=== PATIENT | male | born 1955 | race Caucasian/White ===

== ENCOUNTER 2016-11-23 13:41 | Emergency (ER) | payer MEDICAID ==
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
[2016-11-23 13:55] VITALS: BP 146/90
[2016-11-23] MEDS ORDERED: Ketorolac 60 MG/2 ML SDV IM ONE (14:20)
== END 2016-11-23 14:50 | disposition home or self-care (01) ==
LOC: LL.ED 13:41
DX: I71.9 Aortic aneurysm of unspecified site, without rupture (principal); E78.00 Pure hypercholesterolemia, unspecified; I10 Essential (primary) hypertension; J44.9 Chronic obstructive pulmonary disease, unspecified; K21.9 Gastro-esophageal reflux disease without esophagitis; D64.9 Anemia, unspecified; F17.210 Nicotine dependence, cigarettes, uncomplicated; E78.5 Hyperlipidemia, unspecified; M19.90 Unspecified osteoarthritis, unspecified site; Z79.899 Other long term (current) drug therapy; Z72.0 Tobacco use
CPT/HCPCS: 71101; 96372; 99282; J1885

== ENCOUNTER 2020-06-19 12:46 | Inpatient (IN) | payer MEDICAID ==
[2020-06-19] MEDS ORDERED: Famotidine 20 MG/2 ML SDV IVPUSH ONE (12:51)
[2020-06-19] MEDS ORDERED: Sodium Chloride 0.9% 10 ML Syringe FLUSH PRN ×2 (12:51→16:09)
--- NOTE | 2020-06-19 12:51 | EDM.PDOC ---
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 factors. Qualifiers: Coronary Disease-Associated Artery/Lesion type: elem artery [place] vs. transplanted heart: elem heart Associated angina: without angina Qualified Code(s): I25.10 - Atherosclerotic heart disease of elem coronary artery without angina pectoris (10) Acute renal insufficiency SNOMED Code(s): 298198904 Code(s): N28.9 - DISORDER OF KIDNEY AND URETER, UNSPECIFIED Status: Acute Priority: High Current Visit: No Onset Date: 06/19/20 Annotation/Comment:: As above. Likely secondary to dehydration. Continue aggressive IV fluids as above. (11) Hyponatremia SNOMED Code(s): 92854988 Code(s): E87.1 - HYPO-OSMOLALITY AND HYPONATREMIA Status: Acute Priority: High Current Visit: No Onset Date: 06/19/20 Annotation/Comment:: As above (12) Hypothyroidism (acquired) SNOMED Code(s): 165635324 Code(s): E03.9 - HYPOTHYROIDISM, UNSPECIFIED Status: Acute Priority: Medium Current Visit: No Onset Date: 06/19/20 Annotation/Comment:: Newly diagnosed. Initiate low-dose Synthroid therapy. (13) Diarrhea SNOMED Code(s): 64956500 Code(s): R19.7 - DIARRHEA, UNSPECIFIED Status: Chronic Priority: High Current Visit: Yes Annotation/Comment:: Note recent EGD and colonoscopy in April 2020 as above. Stool specimens to be collected as above. In addition, note unintentional weight loss secondary to this diarrhea in the last several weeks. Qualifiers: Diarrhea type: unspecified type Qualified Code(s): R19.7 - Diarrhea, unsp ecified (14) Mixed anxiety depressive disorder SNOMED Code(s): 027344480 Code(s): F41.8 - OTHER SPECIFIED ANXIETY DISORDERS Status: Chronic Priority: Medium Current Visit: Yes Annotation/Comment:: Stable by history. No history of consistent alcohol abuse. DT precautions to be initiated. - Problem List Review Problem List Initiated/Reviewed/Updated: Yes - My Orders Last 24 Hours: My Active Orders 06/19/20 Breakfast Nothing per Oral Now Diet [DIET] 06/19/20 12:51 Cardiac Monitoring [RC] . DIRECTED EKG Documentation Completion [RC] ASDIRECTED Oxygen Therapy, ED [RC] CONTINUOUS Peripheral IV Care [RC] . DIRECTED Pulse Oximetry [RC] CONTINUOUS Up With Assistance [RC] PFP Vital Signs [RC] PFP Chest 1V Frontal [CR] Stat Sodium Chloride 0.9% [Saline Flush] 10 ml FLUSH ASDIRECTED PRN Obtain Past Medical Record [OM.PC] Urgent Peripheral IV Insertion Adult [OM.PC] Stat Resuscitation Status Stat - Assessment/Plan Admission H&P: Please use this note as an admission H&P Last 24 Hours: My Active Orders 06/19/20 Breakfast Nothing per Oral Now Diet [DIET] 06/19/20 12:51 Cardiac Monitoring [RC] . DIRECTED EKG Documentation Completion [RC] ASDIRECTED Oxygen Therapy, ED [RC] CONTINUOUS Peripheral IV Care [RC] . DIRECTED Pulse Oximetry [RC] CONTINUOUS Up With Assistance [RC] PFP Vital Signs [RC] PFP Chest 1V Frontal [CR] Stat Sodium Chloride 0.9% [Saline Flush] 10 ml FLUSH ASDIRECTED PRN Obtain Past Medical Record [OM.PC] Urgent Peripheral IV Insertion Adult [OM.PC] Stat Resuscitation Status Stat Assessment:: As above Plan: As above. Extensive precautions were given to the patient, who is in agreement with the treatment plan. The patient will require about 3-4 days of inpatient/acute care secondary to multiple health problems as above.
[2020-06-19] MEDS ORDERED: Lactated Ringers 1,000 ML IV ONE (12:53)
[2020-06-19 13:22] LABS: PTT,PARTIAL THROMBOPLSTIN TIME 39.8 SEC (24.5-32.8)
[2020-06-19] MEDS ORDERED: Sodium Chloride 0.9% 1,000 ML IV ONE (13:22)
[2020-06-19] MEDS ORDERED: Acetaminophen 325 MG Tab PO PRN (16:09)
[2020-06-19] MEDS ORDERED: Temazepam 15 MG Cap PO PRN (16:09)
[2020-06-19] MEDS: Sodium Chloride 0.9% 1,000 ML IV SCH (17:13)
[2020-06-19] MEDS ORDERED: Pantoprazole 40 MG Vial IVPUSH SCH (18:00)
[2020-06-19] MEDS: Enoxaparin 80 MG/0.8 ML Syringe SUBCUT SCH (18:02)
[2020-06-19] MEDS ORDERED: Gabapentin 300 MG Cap PO SCH (20:00)
[2020-06-20] MEDS: Sodium Chloride 0.9% 1,000 ML IV SCH ×2 (01:41→09:47)
[2020-06-20] MEDS ORDERED: Nicotine 21 MG/24 Hr Patch TRDERM SCH (08:00)
[2020-06-20] MEDS ORDERED: Pantoprazole 40 MG Vial IVPUSH SCH (08:00)
[2020-06-20] MEDS ORDERED: Rosuvastatin 10 MG Tab PO SCH (08:00)
[2020-06-20] MEDS ORDERED: Fenofibrate,Micronized 134 MG Cap PO SCH (08:00)
[2020-06-20 08:30] LABS: HEMOGLOBIN A1C 5.6 % (4.3-5.7)
[2020-06-20 08:48] LABS: CHLORIDE,CL 104 mmol/L (98-107); SODIUM,NA 133 mmol/L (136-145)
[2020-06-20 16:19] VITALS: BP 100/58; PULSE 78
--- NOTE | 2020-06-20 16:21 | PCM.DCSUM1 ---
Discharge Summary - Hospital Course Brief History: Patient admitted for dehydration secondary to prolonged history of loose stools. Diagnosis: Stroke: No - Discharge Data Discharge Date: 06/20/20 Discharge Disposition: Home, Self-Care 01 Condition: Good - Referral to Home Health Primary Care Physician: PCP Unknown - Discharge Diagnosis/Problem(s) (1) Diarrhea SNOMED Code(s): 82946589 ICD Code: R19.7 - DIARRHEA, UNSPECIFIED Status: Chronic Priority: High Current Visit: Yes Problem Details: Patient reports significant improvement of loose stools since admission/IV fluids. Note recent EGD and colonoscopy in April 2020 as above. Stool specimens requested at time of admission. In addition, note unintentional weight loss secondary to this diarrhea in the last several weeks. Patient does not want to remain in hospital and wishes to be discharged today. Says he will continue follow up with his primary providers/GI for ongoing workup. Qualifiers: Diarrhea type: unspecified type Qualified Code(s): R19.7 - Diarrhea, unspecified (2) Acute renal insufficiency SNOMED Code(s): 422765360 ICD Code: N28.9 - DISORDER OF KIDNEY AND URETER, UNSPECIFIED Status: Acute Priority: High Current Visit: No Onset Date: 06/19/20 Problem Details: Likely secondary to dehydration. Improved today with Cr of 1.69 As noted above, patient does not wish to stay in the hospital and wishes to be discharged. Nursing noted that he has had good PO fluid intake today. Recommend follow up next week with primary to get BMP rechecked. (3) Hypothyroidism (acquired) SNOMED Code(s): 692060754 ICD Code: E03.9 - HYPOTHYROIDISM, UNSPECIFIED Status: Acute Priority: Medium Current Visit: No Onset Date: 06/19/20 Problem Details: Newly diagnosed. Follow up with PCP for initiation of Thyroid medication, ongoing monitoring and adjustments. (4) Mixed anxiety depressive disorder SNOMED Code(s): 020345395 ICD Code: F41.8 - OTHER SPECIFIED ANXIETY DISORDERS Status: Chronic Priority: Medium Current Visit: Yes Problem Details: Stable by history. No history of consistent alcohol abuse. No DTs observed by nursing staff. (5) Aortic aneurysm SNOMED Code(s): 50208501 ICD Code: I71.9 - AORTIC ANEURYSM OF UNSPECIFIED SITE, WITHOUT RUPTURE Status: Acute Priority: High Current Visit: No Problem Details: Note previous history of abdominal aortic aneurysm, including stent placement, with apparent previous close followup by his regular physicians at the [facility] in [place], although the patient has apparently been noncompliant with these visit recently. Despite renal insufficiency today no direct evidence of recurrence of abdominal aortic aneurysm. (6) Coronary artery disease SNOMED Code(s): 33626562 ICD Code: I25.10 - ATHSCL HEART DISEASE OF [place] CORONARY ARTERY W/O ANG PCTRS Status: Acute Priority: High Current Visit: No Onset Date: 06/19/20 Problem Details: Evidence of anterior wall cardiac ischemia by today's EKG with no chest pain or anginal type symptoms. Chest pain protocol was not initiated secondary to absence of the symptoms. Troponins negative. Cardiolite stress test on an outpatient basis secondary to his multiple cardiac risk factors recommended. Qualifiers: Coronary Disease-Associated Artery/Lesion type: [place] artery [place] vs. transplanted heart: [place] heart Associated angina: without angina Qualified Code(s): I25.10 - Atherosclerotic heart disease of [place] coronary artery without angina pectoris (7) HTN, Benign hypertension SNOMED Code(s): 74953611 ICD Code: I10 - ESSENTIAL (PRIMARY) HYPERTENSION Status: Acute Priority: Medium Current Visit: No Onset Date: 08/14/14 Problem Details: Note history of hypertension with severe hypotension at time of presentation likely secondary to dehydration as above. BPs improved s/p IV fluids and are stable. (8) Hyponatremia SNOMED Code(s): 83157436 ICD Code: E87.1 - HYPO-OSMOLALITY AND HYPONATREMIA Status: Acute Priority: High Current Visit: No Onset Date: 06/19/20 Problem Details: Level improved to 133 today. (9) Hypotension SNOMED Code(s): 20495157 ICD Code: I95.9 - HYPOTENSION, UNSPECIFIED Status: Acute Priority: High Current Visit: No Onset Date: 06/19/20 Problem Details: Blood pressures improved after 1 L bolus of normal saline with symptoms likely secondary to dehydration from his chronic diarrhea as above/below. No vasopressors indicated. Note history of abdominal aortic aneurysm as above/below with no direct evidence of recurrence at this time despite renal insufficiency. Qualifiers: Hypotension type: other hypotension type Qualified Code(s): I95.89 - Other hypotension (10) COPD (chronic obstructive pulmonary disease) SNOMED Code(s): 48219738 ICD Code: J44.9 - CHRONIC OBSTRUCTIVE PULMONARY DISEASE, UNSPECIFIED Status: Chronic Priority: Medium Current Visit: No Problem Details: P ersistent tobacco abuse history with tobacco cessation once again strongly encouraged and cessation information to be provided once again at time of discharge. None strongly consider PFTs in this patient with initiation of Combivent inhaler during this hospitalization. No recent fever or bronchitic type symptoms. No indication for antibiotic therapy at this time. Qualifiers: COPD type: emphysema Emphysema type: panlobular Qualified Code(s): J43.1 - Panlobular emphysema (11) Hyperlipidemia SNOMED Code(s): 61933868 ICD Code: E78.5 - HYPERLIPIDEMIA, UNSPECIFIED Status: Chronic Priority: Medium Current Visit: No Problem Details: Currently under therapy Qualifiers: Hyperlipidemia type: unspecified Qualified Code(s): E78.5 - Hyperlipidemia, unspecified (12) Osteoarthritis SNOMED Code(s): 071506209 ICD Code: M19.90 - UNSPECIFIED OSTEOARTHRITIS, UNSPECIFIED SITE Status: Chronic Priority: Medium Current Visit: No Problem Details: Otherwise stable by patient history with no recent history of fall or injury. (13) Peptic reflux disease SNOMED Code(s): 893817912 ICD Code: K21.9 - GASTRO-ESOPHAGEAL REFLUX DISEASE WITHOUT ESOPHAGITIS Status: Chronic Priority: Medium Current Visit: No Problem Details: Note recent EGD and colonoscopy as above. High-dose IV Pepcid given in the emergency room with additional IV Protonix to be initiated after admission. No direct evidence of acute GI bleed despite his chronic diarrhea, which was present prior to his GI work-up in April. Stool specimens to be obtained for C. difficile, culture, ova, and parasites. (14) Tobacco abuse counseling SNOMED Code(s): 914005073, 600846939, 747728034 ICD Code: Z71.6 - TOBACCO ABUSE COUNSELING Status: Chronic Priority: Medium Current Visit: No Problem Details: Tobacco cessation once again strongly encouraged as above with tobacco cessation information to be provided at discharge. - Patient Summary/Data Hospital Course: Patient hydrated with IV fluids. BP improved. He reported feeling much better. Tolerating PO fluids well. Reports decreased loose stools. Renal function improved. DDimer elevated. No SOB/evidence of DVTs on exam. Unable to perform CT scan due to elevated renal function. US not available until Tuesday. Normal WBC/afebrile. Patient does not want to remain in hospital any longer w hen rounded upon and wishes to be discharged. Precautions reviewed with patient. Strongly encouraged to follow up at clinic next week for recheck of labs/kidney function. Will need to continue follow up with the chronic diarrhea, newly diagnosed hypothyroidism. To return to ER if he has sudden SOB/PE concerns. - Patient Instructions Diet: Usual Diet as Tolerated Activity: As Tolerated Showering/Bathing: May Shower Other/Special Instructions: Follow up at clinic NEXT WEEK so that they can check to see if your kidneys are better vs worse. You also need to discuss starting Thyroid medication as your Thyroid TSH is high and will need a better lab workup. Return to the ER if you have any shortness of breath. Recommend that you have an ultrasound of the lower legs next week to make certain there are no signs of any blood clots because one of your lab tests, called a RUBÉNimer, was high. Continue follow up with GI and your regular doc for the diarrhea. Stay hydrated. Follow up otherwise as needed in ER if you have worsening problems. - Discharge Plan *PRESCRIPTION DRUG MONITORING PROGRAM REVIEWED*: Not Applicable *COPY OF PRESCRIPTION DRUG MONITORING REPORT IN PATIENT MADELINE: Not Applicable Home Medications: Home Meds Losartan [Cozaar] 100 mg PO DAILY 08/14/14 [History] Omeprazole [Prilosec] 40 mg PO DAILY 08/14/14 [History] Metoprolol Tartrate 25 mg PO BID 08/19/14 [History] Cyclobenzaprine [Flexeril] 10 mg PO BEDTIME 04/23/20 [History] Fenofibrate Nanocrystallized [Tricor] 145 mg PO DAILY 04/23/20 [History] Rosuvastatin Calcium [Crestor] 40 mg PO DAILY 04/23/20 [History] Gabapentin [Neurontin] 300 mg PO BEDTIME 06/19/20 [History] Patient Handouts: Acute Kidney Injury, Adult, Hypothyroidism Forms: ED Department Discharge Referrals: PCP,Unknown [Primary Care Provider] - - Discharge Summary/Plan Comment DC Time >30 min.: Yes (waiting for ride) - General Info Date of Service: 06/20/20 Admission Dx/Problem (Free Text: Dehydration/hypotension/chronic diarrhea Subjective Update: Patient is without complaint. Says he feels fine and wants to go home. Is urinating. Decreased loose stools. Functional Status: Reports: Pain Controlled Numeric/FACES Score: 0 - Review of Systems General: Reports: No Symptoms HEENT: Denies: Headaches, Sinus Congestion, Sore Throat, Rhinitis, Visual Changes Pulmonary: Reports: Cough (chronic/unchanged). Denies: Shortness of Breath, Pleuritic Chest Pain, Sputum, Hemoptysis, Wheezing Cardiovascular: Denies: Chest Pain, Palpitations, Dyspnea on Exertion, Orthopnea, Lightheadedness Gastrointestinal: Reports: Diarrhea (chronic/improved). Denies: Abdominal Pain, Hematochezia, Melena, Nausea, Vomiting Genitourinary: Reports: No Symptoms Musculoskeletal: Reports: Other (no changes from baseline) Skin: Reports: No Symptoms Neurological: Reports: No Symptoms Psychiatric: Reports: No Symptoms - Patient Data Vitals - Most Recent: Last Vital Signs Temp 36.7 C 06/20/20 12:00 Pulse 68 06/20/20 12:00 Resp 18 06/20/20 12:00 BP 102/58 L 06/20/20 12:00 Pulse Ox 98 06/20/20 12:00 Weight - Most Recent: 71.169 kg I&O - Last 24 hours: Intake & Output 06/20/20 06/20/20 06/20/20 06:59 14:59 22:59 Intake Total 1150 1058 Output Total 400 Balance 750 1058 Lab Results - Last 24 hrs: Laboratory Results - last 24 hr 06/19/20 06/20/20 06/20/20 Range/Units 20:50 07:30 07:30 WBC 6.0 (4.0-10.2) K/uL RBC 4.28 L (4.33-5.41) M/uL Hgb 13.2 D (13.1-16.8) g/dL Hct 39.8 (39.0-49.0) % MCV 93.0 (84.0-98.0) fL MCH 30.8 (28.2-33.3) pg MCHC 33.2 (31.7-36.0) g/dL RDW 13.4 (11.2-14.1) % Plt Count 157 (150-350) K/uL Neut % (Auto) 45.5 (45.0-80.0) % Lymph % (Auto) 36.6 (10.0-50.0) % [place] % (Auto) 12.7 (2.0-14.0) % Eos % (Auto) 4.0 (0.0-5.0) % Baso % (Auto) 1.2 (0.0-2.0) % Neut # (Auto) 2.72 (1.40-7.00) K/uL Lymph # (Auto) 2.19 (0.50-3.50) K/uL [place] # (Auto) 0.76 (0.00-1.00) K/uL Eos # (Auto) 0.24 (0.00-0.50) K/uL Baso # (Auto) 0.07 (0.00-0.20) K/uL Sodium 133 L (136-145) mmol/L Potassium 4.4 (3.5-5.1) mmol/L Chloride 104 (98-107) mmol/L Carbon Dioxide 18.5 L (21.0-32.0) mmol/L BUN 47 H (7-18) mg/dL Creatinine 1.69 H (0.51-1.17) mg/dL Est Cr Clr Drug Dosing TNP Estimated GFR (MDRD) 41 mL/min Glucose 86 (74-106) mg/dL Hemoglobin A1c (4.3-5.7) % Calcium 8.2 L (8.5-10.1) mg/dL Total Bilirubin 0.7 (0.2-1.0) mg/dL AST 21 (15-37) U/L ALT 18 (12-78) U/L Alkaline Phosphatase 25 L (46-116) IU/L Creatine Kinase 52 47 (26-308) U/L Creatine Kinase Index 1.3 1.5 (0.0-2.5) % CK-MB (CK-2) 0.70 0.70 (0.00-3.60) ng/mL Troponin I 0.000 0.008 (0.000-0.056) ng/mL Total Protein 6.0 L (6.4-8.2) g/dL Albumin 2.7 L (3.4-5.0) g/dL Triglycerides 132 (30-150) mg/dL Cholesterol 89 L (100-200) mg/dL LDL Cholesterol, Calc 41 (0-100) mg/dL HDL Cholesterol 22 L (40-60) mg/dL 06/20/20 Range/Units 07:30 WBC (4.0-10.2) K/uL RBC (4.33-5.41) M/uL Hgb (13.1-16.8) g/dL Hct (39.0-49.0) % MCV (84.0-98.0) fL MCH (28.2-33.3) pg MCHC (31.7-36.0) g/dL RDW (11.2-14.1) % Plt Count (150-350) K/uL Neut % (Auto) (45.0-80.0) % Lymph % (Auto) (10.0-50.0) % [place] % (Auto) (2.0-14.0) % Eos % (Auto) (0.0-5.0) % Baso % (Auto) (0.0-2.0) % Neut # (Auto) (1.40-7.00) K/uL Lymph # (Auto) (0.50-3.50) K/uL [place] # (Auto) (0.00-1.00) K/uL Eos # (Auto) (0.00-0.50) K/uL Baso # (Auto) (0.00-0.20) K/uL Sodium (136-145) mmol/L Potassium (3.5-5.1) mmol/L Chloride (98-107) mmol/L Carbon Dioxide (21.0-32.0) mmol/L BUN (7-18) mg/dL Creatinine (0.51-1.17) mg/dL Est Cr Clr Drug Dosing Estimated GFR (MDRD) mL/min Glucose (74-106) mg/dL Hemoglobin A1c 5.6 (4.3-5.7) % Calcium (8.5-10.1) mg/dL Total Bilirubin (0.2-1.0) mg/dL AST (15-37) U/L ALT (12-78) U/L Alkaline Phosphatase (46-116) IU/L Creatine Kinase (26-308) U/L Creatine Kinase Index (0.0-2.5) % CK-MB (CK-2) (0.00-3.60) ng/mL Troponin I (0.000-0.056) ng/mL Total Protein (6.4-8.2) g/dL Albumin (3.4-5.0) g/dL Triglycerides (30-150) mg/dL Cholesterol (100-200) mg/dL LDL Cholesterol, Calc (0-100) mg/dL HDL Cholesterol (40-60) mg/dL Med Orders - Current: Current Medications Acetaminophen (Tylenol) 650 mg PO Q4H PRN PRN Reason: Pain Enoxaparin Sodium (Lovenox) 70 mg SUBCUT Q24H [facility] Last Admin: 06/19/20 18:02 Dose: 70 mg Documented by: Fenofibrate (Fenofibrate) 134 mg PO DAILY [facility] Last Admin: 06/20/20 08:33 Dose: 134 mg Documented by: Gabapentin (Neurontin) 300 mg PO BEDTIME [facility] Last Admin: 06/19/20 19:54 Dose: 300 mg Documented by: Sodium Chloride (Normal Saline) 1,000 mls @ 125 mls/hr IV ASDIRECTED [facility] Last Admin: 06/20/20 09:47 Dose: 125 mls/hr Documented by: Miscellaneous Information (Remove Patch) 1 ea TRDERM BEDTIME [facility] Nicotine (Habitrol) 21 mg TRDERM DAILY [facility] Last Admin: 06/20/20 08:33 Dose: 21 mg Documented by: Pantoprazole Sodium (Protonix Iv) 40 mg IVPUSH Q12HR [facility] Last Admin: 06/20/20 08:33 Dose: 40 mg Documented by: Rosuvastatin Calcium (Crestor) 40 mg PO DAILY [facility] Last Admin: 06/20/20 08:33 Dose: 40 mg Documented by: Sodium Chloride (Saline Flush) 10 ml FLUSH ASDIRECTED PRN PRN Reason: Keep Vein Open Sodium Chloride (Saline Flush) 10 ml FLUSH Q12HR PRN PRN Reason: Keep Vein Open Temazepam (Restoril) 15 mg PO BEDTIME PRN PRN Reason: Insomnia Discontinued Medications Famotidine (Pepcid) 40 mg IVPUSH ONETIME ONE Stop: 06/19/20 12:52 Last Admin: 06/19/20 13:45 Dose: 40 mg Documented by: Lactated Ringer's (Ringers, Lactated) 1,000 mls @ 999 mls/hr IV .BOLUS ONE Stop: 06/19/20 13:53 Last Admin: 06/19/20 13:45 Dose: Not Given Documented by: Sodium Chloride (Normal Saline) 1,000 mls @ 999 mls/hr IV .BOLUS ONE Stop: 06/19/20 14:22 Last Admin: 06/19/20 13:39 Dose: 999 mls/hr Documented by: Pantoprazole Sodium (Protonix Iv) 40 mg IVPUSH Q12H NA Last Admin: 06/19/20 17:16 Dose: 40 mg Documented by: - Exam General: Reports: Alert, Oriented, Cooperative, No Acute Distress HEENT: Reports: Pupils Equal, Pupils Reactive, EOMI, Mucous Membr. Moist/[place] Neck: Reports: Supple Lungs: Reports: Clear to Auscultation, Normal Respiratory Effort Cardiovascular: Reports: Regular Rate, Regular Rhythm GI/Abdominal Exam: Normal Bowel Sounds, Soft, Non-Tender, No Distention (Male) Exam: Deferred Rectal (Males) Exam: Deferred Back Exam: Denies: CVA Tenderness (L), CVA Tenderness (R), Muscle Spasm Extremities: Non-Tender, No Pedal Edema, Normal Capillary Refill Skin: Reports: Warm, Dry Neurological: Reports: No New Focal Deficit Psy/Mental Status: Reports: Alert, Normal Affect, Normal Mood EKG INTERPRETATION EKG Date: 06/20/20 Time: 08:09 Rhythm: Other (Sinus Isaac) Rate (Beats/Min): 55 [place]: Normal P-Wave: Present QRS: Normal ST-T: Other (No obvious acute ischemia noted/nonspecific t wave changed noted V1-V3/AVF) Comparison: No Change
[2020-06-20] MEDS: Enoxaparin 80 MG/0.8 ML Syringe SUBCUT SCH (18:02)
== END 2020-06-20 18:07 | disposition home or self-care (01) | DRG 641 ==
LOC: LL.ED 12:46 → LL.MS 15:03 → UNDOADMIN 15:03 → LL.MS 16:05
PROVIDERS: ADMIT Family Medicine; ATTEND Family Medicine
DX: E86.0 Dehydration (principal); N17.9 Acute kidney failure, unspecified; R19.7 Diarrhea, unspecified; N28.9 Disorder of kidney and ureter, unspecified; I95.89 Other hypotension; R63.4 Abnormal weight loss; K21.9 Gastro-esophageal reflux disease without esophagitis; M19.90 Unspecified osteoarthritis, unspecified site; I71.9 Aortic aneurysm of unspecified site, without rupture; I10 Essential (primary) hypertension; I71.4 Abdominal aortic aneurysm, without rupture; E87.1 Hypo-osmolality and hyponatremia; E78.5 Hyperlipidemia, unspecified; E03.9 Hypothyroidism, unspecified; F41.8 Other specified anxiety disorders; M54.9 Dorsalgia, unspecified; G89.29 Other chronic pain; M54.2 Cervicalgia; F41.9 Anxiety disorder, unspecified; F32.9 Major depressive disorder, single episode, unspecified; D64.9 Anemia, unspecified; F17.210 Nicotine dependence, cigarettes, uncomplicated; Z98.890 Other specified postprocedural states; Z71.6 Tobacco abuse counseling; Z79.899 Other long term (current) drug therapy; J43.1 Panlobular emphysema; I25.10 Atherosclerotic heart disease of native coronary artery without angina pectoris
CPT/HCPCS: 71045; 80307; 82550; 82553; 83605; 83735; 83880; 84443; 84484; 84550; 85379; 85610; 85730; 93005; 96361; 96374; 99285; J3490; J7030; 36415; 80053; 80061; 83036; 85025; 93010; 99222; 99239; A9270-GY; C9113; J1650